=== PATIENT | male | born 2005 | race Caucasian/White ===

== ENCOUNTER 2023-01-23 14:06 | Emergency (ER) | payer OTHER ==
[~2023-01-23] VITALS: Ht 165.1 cm; Wt 49.9 kg
[2023-01-23 14:07] VITALS: O2SAT 99
[2023-01-23] MEDS ORDERED: PANTOPRAZOLE SO40 MG PO (14:15)
[2023-01-23] MEDS ORDERED: DONNATAL/LIDOCAINE/MAALOX 30 ML SUSP PO ONE (15:00)
== END 2023-01-23 16:53 | disposition home or self-care (01) ==
LOC: ER 14:45
DX: K20.90 Esophagitis, unspecified without bleeding (principal)
CPT/HCPCS: 99283